=== PATIENT | male | born 1950 | race Caucasian/White ===

== ENCOUNTER 2020-01-10 05:51 | Inpatient (IN) ==
--- NOTE | 2019-12-28 09:06 | PAT Medication Instructions ---
Medication Instructions Date of Service December 28, 2019 Home Medications acetaminophen [Tylenol Ex Str Arthritis Pain] 500 mg PO Q6H PRN aspirin [Aspir-81] 81 mg PO QPM atorvastatin [Lipitor] 10 mg PO PM lorazepam [Ativan] 1 mg PO UD PRN magnesium oxide 500 mg PO QAM multivitamin 1 tab PO QAM ASK your prescriber and surgeon aspirin [Aspir-81] 81 mg PO QPM DO NOT take the morning of surgery magnesium oxide 500 mg PO QAM multivitamin 1 tab PO QAM Take morning of surgery With a small sip of water, OTHERWISE NOTHING TO EAT OR DRINK AFTER MIDNIGHT: acetaminophen [Tylenol Ex Str Arthritis Pain] 500 mg PO Q6H PRN (okay to take up to 4 hours prior to surgery if needed) lorazepam [Ativan] 1 mg PO UD PRN (if needed) Take evening before surgery acetaminophen [Tylenol Ex Str Arthritis Pain] 500 mg PO Q6H PRN (if needed) atorvastatin [Lipitor] 10 mg PO PM lorazepam [Ativan] 1 mg PO UD PRN (if needed) Other Notes If you have any questions please call us at [phone] or [phone] or [phone] or [phone]
--- NOTE | 2019-12-28 12:19 | Anesthesiology Consultation ---
Date of Service December 28, 2019 Assessment & Plan (1) Encounter for pre-operative examination: COVID Status: As of 12/27 assessment, patient denies travel to endemic area, known exposure/sick contacts, or symptoms of COVID19. Patient instructed that they and their household members must follow strict social distancing guidelines, wear a mask in public and avoid travel for 14 days prior to surgery. Preoperative COVID19 testing to be completed prior to surgery per surgeon's arra ngements. Patient made aware to self-isolate as much as possible between COVID testing and surgery. Chart Review Chart Review: Acceptable Risk for Surgery and Patient seen in Pre Admission Testing Teaching & Discussion Instructed NPO after midnight before surgery, except medications with 15 cc of water. Medication instructions provided according to the PAT guidelines. History Surgery Operation Date: 01/10/20 07:30 Proposed Procedures p Robotic Laparoscopic Prostatectomy - Zander Black MD Height/Weight Height: 5 ft 10 in Weight: 103.1 kg Allergies Allergy/AdvReac Type Severity Reaction Status Date / Time morphine Allergy Intermediate NAUSEA, Verified 12/28/19 10:13 HEAVY FEELING IN CHEST-"FELT LIKE HE WAS DYING" Sulfa (Sulfonamide AdvReac Unknown FROM Verified 12/28/19 10:13 Antibiotics) SEPTRA - VIOLENT HEADACHE trimethoprim AdvReac Unknown FROM Verified 12/28/19 10:13 SEPTRA - VIOLENT HEADACHE Medications Home Medications Medication Instructions Recorded Confirmed Last Taken acetaminophen [Tylenol Ex Str 500 mg PO Q6H PRN 12/21/19 12/28/19 Unknown Arthritis Pain] aspirin [Aspir-81] 81 mg PO QPM 12/21/19 12/28/19 Unknown atorvastatin [Lipitor] 10 mg PO PM 12/21/19 12/28/19 Unknown lorazepam [Ativan] 1 mg PO UD PRN 12/21/19 12/28/19 Unknown magnesium oxide 500 mg PO QAM 12/21/19 12/28/19 Unknown multivitamin 1 tab PO QAM 12/21/19 12/28/19 Unknown Past Medical History Medical History Hearing deficit BL UMANZOR Hyperlipemia Osteoarthritis Prostate cancer Exercise / Class Metabolic Activity II 4-5 Yardwork/Stairs/Walk up hill Past Family History Family History Father Prostate cancer Mother Breast cancer Other No family history of adverse response to anesthesia Past Surgical History Surgical History History of colonoscopy History of esophagogastroduodenoscopy (EGD) History of hip replacement Right History of knee replacement Left History of prostate biopsy History of shoulder replacement Right Past Anesthesia History No Hx of Anesthesia Complications and No Family Hx of Anesthesia Complications History of PONV No Hx of PONV and No Hx of Motion Sickness Social History Smoking Status: Never smoker Do You Dip or Chew Tobacco: No Hx Alcohol Use: Yes alcohol intake frequency: a few times a month Hx Substance Use: No substance use type: does not use Review of Systems Pt denies any recent chest pain, shortness of breath, palpitations, cough, fever, URI, or uncontrolled acid reflux. Physical Exam Vital Signs BP: 136/88 P: 64bpm SPO2: 98% T: 98.3 F R: 12 ENMT Mouth: + dental restorations (1 crown on molar); no chipped teeth and no loose teeth Thyromental Distance: > or= 3.5 Finger Breadths Mallampati Class: I Neck normal visual inspection; neck extension not limited (pain with full prolonged e xtension) Respiratory normal respiratory effort Auscultation: lungs clear to auscultation bilaterally Cardiovascular Rate/Rhythm: regular rate and regular rhythm Heart Sounds: no murmur Extremities: no edema Testing Laboratory Results 12/28/19 12:05 12/28/19 12:05 Urine Color Yellow 12/28/19 12:05 Urine Appearance Clear (Clear) 12/28/19 12:05 Urine pH 5.0 (4.5-7.5) 12/28/19 12:05 Ur Specific [place] 1.010 (1.000-1.030) 12/28/19 12:05 Urine Protein Negative (Negative) 12/28/19 12:05 Urine Glucose (UA) Negative (Negative) 12/28/19 12:05 Urine Ketones Negative (Negative) 12/28/19 12:05 Urine Nitrite Negative (Negative) 12/28/19 12:05 Ur Leukocyte Esterase Negative (Negative) 12/28/19 12:05 Blood Type A Positive 12/28/19 12:05 Antibody Screen NEGATIVE 12/28/19 12:05 Electrocardiogram Date: 12/28/19 Findings: + SB @ (59bpm) Left axis deviation. Increased R/S ratio in V1, consider early transition or posterior infarct. Minimal voltage criteria for LVH, may be normal variant. Compared with EKG of 04/04/13, no significant change was found. Chest X-Ray Date: 12/28/19 Findings: + NAD
--- NOTE | 2019-12-28 12:50 | XRay Report ---
XR chest Pre-admission PA/Lat HISTORY: Preop. COMPARISON: Chest 05/15/2015. FINDINGS: No pneumothorax. No pleural effusions. There is a right shoulder prosthesis. Severe osteoar thritis within the left shoulder, unchanged. The heart is normal in size. The lungs are clear. Tortuo us thoracic aorta, unchanged. IMPRESSION: No significant change compared to the prior study. No acute process. ACT 112: Negative or not required by law. Electronically signed by: Giovani Viera M.D. 12/28/2019 12:49 PM
[2019-12-28 13:31] LABS: Basophils # (auto) 0.03 K/uL (0-0.2); Basophils % (auto) 0.5 %; Eosinophils # (auto) 0.21 K/uL (0-0.5); Eosinophils % (auto) 3.6 %; Hematocrit (blood only) 44.5 % (42-52); Hemoglobin 15.1 g/dL (14.0-18.0); Immature Granulocytes # (auto) 0.01 K/uL (0.00-0.02); Immature Granulocytes % (auto) 0.2 %; Lymphocytes # (auto) 2.24 K/uL (1.2-3.4); Lymphocytes % (auto) 38.8 %; Mean Corpuscular Hemoglobin 31.6 pg (25-34); Mean Corpuscular Hgb Conc 33.9 g/dL (32-36); Mean Corpuscular Volume 93.1 fL (80-100); Mean Platelet Volume 9.4 fL (7.4-10.4); Monocytes # (auto) 0.63 K/uL (0.11-0.59); Monocytes % (auto) 10.9 %; Neutrophils # (auto) 2.65 K/uL (1.4-6.5); Platelet Count 304 K/uL (130-400); RDW Coefficient of Variation 12.9 % (11.5-14.5); RDW Standard Deviation 44.1 fL (36.4-46.3); Red Blood Count 4.78 M/uL (4.7-6.1); White Blood Count 5.77 K/uL (4.8-10.8)
[2019-12-28 13:36] LABS: Appearance Urine Clear (Clear); Bilirubin Urine Negative (Negative); Blood Urine Negative (Negative); Color Urine Yellow; Glucose Urine UA Negative (Negative); Ketones Urine Negative (Negative); Leukocyte Esterase Urine Negative (Negative); Nitrite Urine Negative (Negative); Protein Urine Negative (Negative); Urobilinogen Urine Negative (Negative)
[2019-12-28 13:37] LABS: BUN Creatinine Ratio 20.6 (10-20); Calcium 9.1 mg/dl (8.5-10.1); Creatinine Clr Calc Pharmacy 105.3 ml/min; Est GFR (African American) 106.3; Est GFR (Non-African American) 91.7; Potassium 4.8 mmol/L (3.5-5.1)
--- NOTE | 2019-12-28 15:14 | Electrocardiogram Report ---
Test Reason : Blood Pressure : / mmHG Vent. Rate : 059 BPM Atrial Rate : 059 BPM P-R Int : 154 ms QRS Dur : 098 ms QT Int : 440 ms P-R-T Axes : 044 -30 021 degrees QTc Int : 435 ms Sinus bradycardia Left axis deviation Increased R/S ratio in V1, consider early transition or posterior infarct Minimal voltage criteria for LVH, may be normal variant Abnormal ECG When compared with ECG of 04-APR-2013 06:31, No significant change was found Confirmed by Gerson Smith ([id number]) on 12/28/2019 3:14:10 PM Referred By: Zander Black Confirmed By:Gerson Smith
[2020-01-10] MEDS ORDERED: HEPARIN SOD 5,000 UNIT/0.5 ML VIAL SQ SCH (06:00)
[2020-01-10] MEDS ORDERED: LR 15ML/HR IV SCH (06:00)
[2020-01-10] MEDS ORDERED: CEFAZOLIN 3000MG 72.5 ML IV SCH (06:00)
[2020-01-10] MEDS ORDERED: ATROPINE SULFATE 0.1 MG/ML 10ML SYR IV PRN (07:10)
[2020-01-10] MEDS ORDERED: ePHEDrine sulfate 50 MG/ML AMP IV PRN (07:10)
[2020-01-10] MEDS ORDERED: ONDANSETRON INJ 2 MG/ML 2 ML VIAL IV PRN (07:10)
[2020-01-10] MEDS ORDERED: fentaNYL citrate 100 MCG/2 ML VIAL IV PRN (07:10)
--- NOTE | 2020-01-10 07:13 | History & Physical Bridge Note ---
Date of Service January 10, 2020 History & Physical Bridge Note I have examined the patient, reviewed the History & Physical and in the interval since the performance of the History & Physical I have noted the following changes of clinical significance: no changes noted
[2020-01-10] MEDS ORDERED: MIDAZOLAM HCL 1 MG/ML 2ML VIAL ONE (07:15)
[2020-01-10] MEDS ORDERED: PROPOFOL IV EMULSION 10 MG/ML 20 ML VIAL IV ONE (07:15)
[2020-01-10] MEDS ORDERED: DEXAMETHASONE SOD INJ 4 MG/ML VIAL ONE (07:15)
[2020-01-10] MEDS ORDERED: LIDOCAINE HCL 2% 2 ML VIAL/AMP(20MG/ML) INFIL ONE (07:15)
[2020-01-10] MEDS ORDERED: fentaNYL citrate 100 MCG/2 ML VIAL ONE ×2 (07:15→10:38)
[2020-01-10] MEDS ORDERED: GLYCOPYRROLATE 0.2 MG/ML VIAL ONE ×2 (07:15→10:37)
[2020-01-10] MEDS ORDERED: NEOSTIGMINE METHYLSULFATE 5 MG/5 ML SYR ONE (07:15)
[2020-01-10] MEDS ORDERED: ONDANSETRON INJ 2 MG/ML 2 ML VIAL ONE ×2 (07:15→08:18)
[2020-01-10] MEDS ORDERED: BUPIVACAINE 0.5 % 5 MG/1 ML MPF 30ML VIAL ONE (07:30)
[2020-01-10] MEDS ORDERED: BELLADONNA/OPIUM SUPP 60 MG SUPP PR ONE ×2 (07:40→08:46)
[2020-01-10] MEDS ORDERED: LARYING-O-JET KIT (LTA) ONE (08:18)
[2020-01-10] MEDS ORDERED: ePHEDrine sulfate 50 MG/ML SYR ONE ×2 (08:18→12:45)
[2020-01-10] MEDS ORDERED: PHENYLEPHRINE 100MCG/ML 5ML SYR ONE (08:18)
[2020-01-10] MEDS ORDERED: SURGICEL ABSORB HEMOSTAT 2IN X 14IN TOP ONE (08:43)
[2020-01-10] MEDS ORDERED: FLOSEAL HEMOSTATIC MATRIX 10ML TOP ONE (09:54)
--- NOTE | 2020-01-10 11:59 | Operative Report ---
[facility] Post Operative Report Pre & Post Diagnosis Operation Date: 01/10/20 07:30 Pre-Op Diagnosis: Prostate Cancer Post-Op Diagnosis: Prostate Cancer I identified the patient and participated in the time-out.: Yes Procedure Operation Date: 01/10/20 07:30 Actual Procedures p Robotic Laparoscopic Prostatectomy(Not Applicable) - Zander Black MD Surgeon Mina Black MD Compensation Vice President Darlene Álvarez and Katy Oliva Estimated Blood Loss 100 Findings Consistent with Post-Op Diagnosis Specimens 1. Periprostatic fat 2. Prostate and seminal vesicles 3. Left obturator lymph node 4. Right obturator lymph node Description of Procedure The patient was identified in the preoperative holding area, appropriate in formed consents were reviewed and completed, and he was transported to the operating suite. Subcutaneous heparin was administered in the pre-operative holding area. Upon arrival in the operating suite, he received appropriate antibiotics and general anesthesia. He was positioned in dorsal lithotomy, a B&O suppository was inserted after digital rectal exam, and he was prepped and draped in standard fashion. A Alston catheter was inserted in the sterile field. A Veress needle was passed per umbilicus with uniform insufflation of the abdomen to 15mmHg. He was placed in steep Trendelenburg position. A periumbilical incision was then made to accommodate a 12mm Visiport with 10mm 0degree laparoscope. Inspection of the abdomen was carried out, and there was no evidence of traumatic entry or injury secondary to the Veress needle. After confirming a clear anterior abdominal wall, ports were subsequently placed in standard robotic prostatectomy fashion without incident. To begin the robotic portion of the case, the left lateral aspect of the sigmoid was mobilized off of the left pelvic side wall to allow the pouch of Elias to be appropriately visualized. I then made an incision in the pouch of Elias, overlying the seminal vesicles. Both SVs as well as the ampullae of the vasa were entirely dissected, with the vasa transected 3cm from the prostate. The medial umbilical ligaments were then controlled with bipolar electrocautery just inferior to the umbilicus. Following cauterization, they were divided utilizing monopolar cautery. A peritoneal incision was carried from this location to the medial aspect of the internal inguinal rings bilaterally with care to avoid opening through the ring. This incision was concluded when the vas deferens was reached. Dissection of the bladder and prostate off of the posterior aspect of the pubic arch was completed allowing full visualization of the prostate. The fat overlying the prostate was removed en bloc and passed off the table as a specimen labeled "periprostatic fat". The endopelvic fascia was cleared during this portion of the procedure, and subsequently opened - first on the right and then the left. The incision through the endopelvic fascia began near the prostate-bladder junction and was carried to the apex with extreme care to preserve all lateral levator musculature as well as the periurethral muscul ature and sphincter complex. I additionally preserved the puboprostatic ligaments. I then controlled the DVC with a 3-0 V-lock suture in overlapping/figure of 8 fashion. The lymph node dissection was then conducted. External iliac vessels were identified on the pelvic side wall. The packet of fat and lymphatic tissue that resides just under the iliac vein was elevated and off of the vein with a split and roll technique. The packet was dissected laterally to the circumflex vein and distally to the obturator nerve which was preserved. The proximal aspect of the packet was carried towards the bifurcation of the iliac vessels. A combination of monopolar and bipolar cautery were used to assist with control. After completing the dissection on both sides, the packets were collected and passed off of the table as specimens labeled "pelvic lymph nodes". My attention then returned to the prostate, with identification of the bladder neck aided by gentle traction on the Alston catheter and lateral to medial pressure at the presumed level of the bladder neck with the robotic instruments. An anterior cystotomy was made, the Alston balloon deflated and the catheter guided through the incision to allow anterior retraction. I attempted to preserve maximal bladder neck musculature as I circumferentially dissected around the bladder neck. After incision through the posterior aspect of the mucosa, the dissection was carried through detrusor muscle until the bilateral ampullae of the vasa were identified. The previously dissected vasa and SVs were brought through the incision and used to elevated the prostate anteriorly. A posterior plane behind the prostate was then developed - splitting Denonvilliers's fascia. This dissection was carried as far as possible towards the apex as well as far as possible laterally. An incision in the lateral prostatic fascia was then made bilaterally to facilitate control of the vascular pedicles and preservation of the nerve bund les. Vasculature running along the posterior/lateral aspect of the prostate was preserved as well as the tissue containing the nerves. Nerve sparing was excellent. The pedicles were then controlled with a series of Weck clips. The apical attachments of the prostate were remaining at that stage. The DVC was divided after control with bipolar cautery over the prostate. Continuous inspection from anterior and lateral views allowed me to closely follow the apical contour of the prostate and maximally preserve urethral length and tissue. The prostate was entirely freed at that point, and collected in an EndoCatch bag before being moved out of the field of vision. Hemostasis was confirmed and anastomosis of the bladder and urethra was completed utilizing a double armed V- Lock stitch. A new Alston catheter was inserted and the anastomosis tested with irrigation. There was no evidence of leak. A rufus style stitch was placed bilaterally to functionally marsupialize the area of the lymph node dissection. The robot was undocked, the specimen extracted through expansion of the steve- umbilical camera port. The fascia was closed with a series of 0-PDS figure of 8 stitches. The right phlebotomist lab assistant port was closed in two layers - with a figure of 8 0-Vicryl to reapproximate the fascia followed by 4-0 Monocryl to close the skin. Monocryl was used to close all other skin incisions. All wounds were dressed with Dermabond. The case was concluded and the patient taken to the PACU in stable condition. Darlene Álvarez and Katy Oliva assisted throughout the case from incision to closure I attest to the content of the Intraoperative Record and any orders documented therein. Any exceptions are noted below.
--- NOTE | 2020-01-10 12:10 | Anesthesiology Progress Note ---
Date of Service January 10, 2020 Anesthesia Post Procedure Vital Signs Vital Signs: Temp Pulse Pulse Resp BP Pulse Ox 01/10/20 12:05 87 14 110/76 98 01/10/20 11:55 84 12 117/75 97 01/10/20 11:45 84 12 106/67 94 01/10/20 11:39 96.8 F L 87 18 120/76 97 01/10/20 06:08 98.1 F 63 16 142/94 H 98 Pain Intensity Abdomen: Pain Intensity: 2 Transfer of Care Handoff Completed per policy Notes Mental Status: alert / awake / arousable and participated in evaluation Patient Amnestic to Procedure: Yes Nausea / Vomiting: adequately controlled Pain: adequately controlled Airway Patency, RR, SpO2: stable & adequate BP & HR: stable & adequate Hydration State: stable & adequate Anesthetic Complications: no major complications apparent and Pt Satisfied with anesthetic care
[2020-01-10 12:26] LABS: Basophils # (auto) 0.01 K/uL (0-0.2); Basophils % (auto) 0.1 %; Eosinophils # (auto) 0.01 K/uL (0-0.5); Eosinophils % (auto) 0.1 %; Hematocrit (blood only) 38.8 % (42-52); Immature Granulocytes # (auto) 0.03 K/uL (0.00-0.02); Immature Granulocytes % (auto) 0.2 %; Lymphocytes # (auto) 0.78 K/uL (1.2-3.4); Lymphocytes % (auto) 6.3 %; Mean Corpuscular Hemoglobin 30.9 pg (25-34); Mean Corpuscular Volume 92.2 fL (80-100); Mean Platelet Volume 8.8 fL (7.4-10.4); Monocytes # (auto) 0.37 K/uL (0.11-0.59); Neutrophils # (auto) 11.19 K/uL (1.4-6.5); Neutrophils % (auto) 90.3 %; Platelet Count 264 K/uL (130-400); RDW Coefficient of Variation 12.8 % (11.5-14.5); RDW Standard Deviation 43.1 fL (36.4-46.3); Red Blood Count 4.21 M/uL (4.7-6.1); White Blood Count 12.39 K/uL (4.8-10.8)
[2020-01-10 12:35] LABS: Mean Corpuscular Hgb Conc 33.5 g/dL (32-36)
[2020-01-10 12:37] LABS: BUN Creatinine Ratio 14.4 (10-20); Calcium 8.4 mg/dl (8.5-10.1); Creatinine Clr Calc Pharmacy 98.5 ml/min; Est GFR (African American) 103.5; Est GFR (Non-African American) 89.3; Potassium 4.1 mmol/L (3.5-5.1)
[2020-01-10] MEDS ORDERED: ROCURONIUM BROMIDE 10 MG/ML 5 ML VIAL IV ONE (12:45)
[2020-01-10] MEDS ORDERED: ACETAMINOPHEN 1,000 MG/100 ML VIAL IV PRN (12:49)
[2020-01-10] MEDS ORDERED: HYDROCODONE/ACETAMOPHEN 5/325MG TAB PO PRN ×2 (12:49)
[2020-01-10] MEDS ORDERED: HYDROmorphone INJ 1 MG/ML SYRINGE IV PRN (12:49)
[2020-01-10] MEDS ORDERED: HYDROmorphone INJ 0.5 MG/0.5 ML SYR IV PRN (13:04)
[2020-01-10] MEDS: ONDANSETRON INJ 2 MG/ML 2 ML VIAL IV PRN ×2 (13:27→19:33)
[2020-01-10] MEDS: LACTATED RINGER'S 1,000 ML IV SCH ×2 (13:45→16:01)
[2020-01-10] MEDS: CEFAZOLIN 2000MG 2,000 MG/15 ML SYR IV SCH ×2 (16:07→21:39)
[2020-01-10] MEDS ORDERED: ATORVASTATIN 10 MG TAB PO SCH (21:00)
[2020-01-10] MEDS: HEPARIN SOD 5,000 UNIT/0.5 ML VIAL SQ SCH (21:33)
[2020-01-11] MEDS: KETOROLAC TROMETHAMINE 15 MG/ML VIAL IV PRN ×2 (00:08→09:11)
[2020-01-11] MEDS: LACTATED RINGER'S 1,000 ML IV SCH ×2 (00:08→08:53)
[2020-01-11 06:15] LABS: Basophils # (auto) 0.01 K/uL (0-0.2); Basophils % (auto) 0.1 %; Eosinophils # (auto) 0.03 K/uL (0-0.5); Eosinophils % (auto) 0.4 %; Hematocrit (blood only) 33.8 % (42-52); Hemoglobin 11.6 g/dL (14.0-18.0); Immature Granulocytes # (auto) 0.01 K/uL (0.00-0.02); Immature Granulocytes % (auto) 0.1 %; Lymphocytes # (auto) 2.13 K/uL (1.2-3.4); Lymphocytes % (auto) 26.5 %; Mean Corpuscular Hemoglobin 31.4 pg (25-34); Mean Corpuscular Hgb Conc 34.3 g/dL (32-36); Mean Corpuscular Volume 91.6 fL (80-100); Mean Platelet Volume 8.6 fL (7.4-10.4); Monocytes # (auto) 1.08 K/uL (0.11-0.59); Monocytes % (auto) 13.4 %; Neutrophils # (auto) 4.77 K/uL (1.4-6.5); Neutrophils % (auto) 59.5 %; Platelet Count 236 K/uL (130-400); RDW Coefficient of Variation 12.9 % (11.5-14.5); RDW Standard Deviation 43.1 fL (36.4-46.3); Red Blood Count 3.69 M/uL (4.7-6.1); White Blood Count 8.03 K/uL (4.8-10.8)
[2020-01-11 06:45] LABS: BUN Creatinine Ratio 16.8 (10-20); Calcium 8.4 mg/dl (8.5-10.1); Creatinine Clr Calc Pharmacy 108.4 ml/min; Est GFR (African American) 107.7; Est GFR (Non-African American) 92.9
--- NOTE | 2020-01-11 08:30 | Urology Progress Note ---
Date of Service January 11, 2020 Assessment & Plan (1) Prostate cancer: PoD #1 s/p RALP w/ LND -cont ambulation - advance diet - likely d/c home later today Admission and Anticipated Discharge Date Admission Date: January 10, 2020 Subjective doing fine ambulating tolerating a diet pain under control labs stable Physical Exam Physical Exam: urine clear incisions appropriate Constitutional: well developed and well nourished Respiratory: no respiratory distress Cardiovascular: Extremities: no pedal edema Gastrointestinal (Abdomen): Inspection/Auscultation: abdomen normal to inspection Results & Data ([facility]) Vital Signs (Past 12 Hours) Vital Signs Temp Pulse Resp BP Pulse Ox 01/11/20 07:19 36.7 C 69 16 120/77 97 01/11/20 03:32 36.6 C 66 18 109/66 96 01/10/20 23:33 36.7 C 72 16 111/66 95 PG Care Time/CCT Total # of Minutes Spent Total Time Spent with Patient: Total time spent is greater than 50% in coordination of care (as documented) at patient's floor/unit and/or counseling patient: Coding Level of Care Code None Diagnoses Prostate cancer C61
[2020-01-11] MEDS: HEPARIN SOD 5,000 UNIT/0.5 ML VIAL SQ SCH (08:49)
[2020-01-11] MEDS ORDERED: MULTIVITAMIN TAB PO SCH (09:00)
[2020-01-11] MEDS ORDERED: MAGNESIUM OXIDE 400 MG TAB PO SCH (09:00)
--- NOTE | 2020-01-19 13:21 | Discharge Summary ---
Date of Service January 19, 2020 Admission HPI Per Admitting Provider Presented for robotic prostatectomy secondary to prostate cancer Principal Diagnosis Prostate cancer Discharge Data Allergies Allergy/AdvReac Type Severity Reaction Status Date / Time morphine Allergy Intermediate NAUSEA, Verified 01/17/20 09:05 HEAVY FEELING IN CHEST-"FELT LIKE HE WAS DYING" Sulfa (Sulfonamide AdvReac Unknown FROM Verified 01/17/20 09:05 Antibiotics) SEPTRA - VIOLENT HEADACHE trimethoprim AdvReac Unknown FROM Verified 01/17/20 09:05 SEPTRA - VIOLENT HEADACHE Procedures Performed Operation Date: 01/10/20 07:30 Actual Procedures p Robotic Laparoscopic Prostatectomy(Not Applicable) - Zander Black MD Hospital Course (1) Prostate cancer: Patient admitted for a robotic prostatectomy - details of the procedure as dictated previously in my operative report - in summary, he tolerated the procedure very well - he was in stable condition overnight with appropriate urine output and stable labs - he was subsequently discharged home with a andre catheter - he was in stable condition at the time of discharge Total Time Total Time Spent Total Time Spent (In Minutes): 15 Total Time Includes: Examination of the Patient, Discharge Planning, Medication Reconciliation, Communication With Other Providers and Other Discharge Plan Discharge Items Patient Disposition: Home - Self-Care Reason For Visit: Prostate Cancer Discharge Diagnosis: Prostate Cancer Activity: Per Instructions section Lifting: No more than 25 pounds Bathing Comment: No tub baths or soaks. OK to shower 1 day after discharge. Sexual Activity: Wait until after follow-up appointment Exercise/Sports: Wait until after follow-up appointment Driving/Machine Use: Do not drive while on narcotic pain medication Non-emergency contact: Surgeon and Urologist Call non-emergency contact if: your pain is not controlled, you have a fever, y our temperature is above 101, your wound has increased redness, your wound has increased drainage and your wound pain has increased Follow-up/Referrals: Zander Black MD [Physician] - 01/25/20 1:00 pm Ham Francois MD [Primary Care Provider] - [facility],Nurse [FAKE FOR SCHEDULES] - 01/17/20 9:00 am Diet: Regular Addtl Attending Provider Instructions: Please take all medications as prescribed and keep all follow-ups as scheduled. Please call our office at [phone] with any questions, concerns or need to reschedule appointments for any reason. We are happy to assist you We have sent an antibiotic to your pharmacy of choice. Please begin antibiotic as prescribed the day BEFORE your scheduled voiding trial at [facility]. Please continue antibiotic every 12 hours through the day AFTER your voiding trial. Activity: We recommend having someone with you for the first few days after surgery to help care for you. For the first 2 weeks after surgery, we would like you to get up and walk around your house. However, we recommend limit physical activity that would increase your heart rate. This will allow your body to rest and heal. Take naps if you feel tired. Don't lift anything heavier than 10 pounds, mow the law or ride a bicycle until your follow-up appointment. Please avoid long car rides. Home Care: Unless directed otherwise, drink 6 to 8 glasses of water a day (enough to keep your urine light colored). This will also help keep a healthy flow of urine. We recommend using a stool softener for the first two weeks to avoid constipation. Andre Catheter or Suprapubic Catheter care: Keep the catheter well secured with either a leg back or leg strap with large bag. Empty your bag when it's about half full. You may notice some blood in the bag. This is normal after surgery and while the catheter is in place. Use mild soap (such as Dove or Dial) and water to wash the catheter and the head of your penis daily, or more frequently if needed. Return to your normal diet, we encourage good protein intake to promote healing. You may shower as normal. Please avoid tub baths or soaking until catheter removed and incisions well healed. Wearing sweat pants while you have the catheter is recommended, they will be more comfortable. Follow-up Your follow up appointments for having your catheter removed, and follow up with your physician should already be scheduled. If you have any questions regarding this, please contact our office. Your final pathology report will be discussed at your physician follow-up appointment. Call [facility] at [phone] right away if you have any of the following: Chest pain or trouble breathing (call 911 or go to the hospital) Fever of 101F or higher, uncontrolled vomiting Heavy bleeding, clots, or bright red blood from the catheter Catheter that falls out or stops draining Foul-smelling discharge from your catheter Redness, swelling, warmth, or increased pain at your incision site Drainage, pus, or bleeding from your incision Pending Studies at Discharge: Yes Studies:: Pathology Stand-Alone Forms: [facility], Opioid Pain Management Medications and DC Order Prescriptions: New docusate sodium [Colace] 100 mg capsule 100 mg PO BID Qty: 60 RF: 0 hydrocodone-acetaminophen [Ericson] 5-325 mg tablet 1 tab PO TID PRN (Reason: pain) Qty: 14 RF: 0 Continued multivitamin Tablet 1 tab PO QAM RF: 0 atorvastatin [Lipitor] 10 mg Tablet 10 mg PO PM RF: 0 aspirin [Aspir-81] 81 mg Tablet,Delayed Release (Dr/Ec) 81 mg PO QPM RF: 0 acetaminophen 500 mg Tablet 500 mg PO Q6H PRN (Reason: Pain) RF: 0 magnesium oxide 500 mg Tablet 500 mg PO QAM RF: 0 lorazepam [Ativan] 1 mg Tablet 1 mg PO UD PRN (Reason: Anxiety) RF: 0 Discharge Orders: Discharge Order (Routine); Ordered 01/11/20 Ordered By: Darlene Hayes/Other Patient Handouts: Indwelling Urinary Catheter Dc, Discharge Instructions Caring for ... Admission Data Admit Date/Time: 01/10/20 11:53 Attending Provider: Zander Black Admit Provider: Zander Black Primary Care Provider: Ham Francois Other Interventions: Discharge Summary Assessment (RN) Last Done: 01/11/20 13:25 Coding Level of Care Code D/C Day Management <30 mins Diagnoses Prostate cancer C61
== END 2020-01-11 14:22 | disposition home or self-care (01) | DRG 708 ==
LOC: ASU 05:51 → 3E 11:53
DX: C61 Malignant neoplasm of prostate